=== PATIENT | female | born 1975 | race Caucasian/White ===

== ENCOUNTER 2017-08-21 08:39 | Day surgery (SDC) | payer OTHER ==
[2017-08-20 15:14] VITALS: BMI 25.4
[2017-08-21] MEDS ORDERED: PROPOFOL 20 ML ONE (09:01)
[2017-08-21] MEDS ORDERED: LIDOCAINE HCL 2% (20ML MULTI-DOSE VIAL) NR ONE (09:01)
[2017-08-21 10:05] VITALS: TEMP 98.6
[2017-08-21 10:22] VITALS: PULSE 75
[2017-08-21 11:10] VITALS: BP 120/77
--- NOTE | 2017-08-22 17:00 | PATH ---
Surgical Pathology Report Patient Name: JUAN RIOS [facility]. Rec. #: [id number] /Age/Gender: 1975 (Age: 42) / F Account: [id number] Location: U-ENDOSCOPY Taken: 08/21/2017 Received: 08/21/2017 Reported: 08/22/2017 Physicians: Shawn Back M.D. Specimen(s) Received BX ULCERATIVE PROCTITIS Clinical History Preoperative diagnosis: Follow up ulcerative colitis Postoperative diagnosis: Ulcerative colitis Final Diagnosis RECTUM, ULCERATIVE PROCTITIS, BIOPSY: COLONIC MUCOSA WITH SEVERE CHRONIC ACTIVE COLITIS WITH ASSOCIATED ULCERATION, CRYPTITIS, GLAND AND ARCHITECTURAL DISTORTION. NO GRANULOMA OR DYSPLASIA IDENTIFIED. Electronically Signed Jade Melo M.D. Gross Description Received in formalin, labeled "biopsy ulcerative proctitis" are 3 constantino, irregular portions of soft tissue ranging from 0.1-0.4 cm. in greatest dimension. The specimens are submitted in toto in one cassette. 08/21/201708/21/2017
== END 2017-08-21 11:12 | disposition home or self-care (01) ==
LOC: JASU-ENDO 08:39
PROVIDERS: ATTEND Internal Medicine Gastroenterology
PROC: 0DBP8ZX Excision of Rectum, Via Natural or Artificial Opening Endoscopic, Diagnostic (ICD-10-PCS; principal; 2017-08-21 09:00)
DX: K51.90 Ulcerative colitis, unspecified, without complications (principal)
CPT/HCPCS: 84703; 88305-TC

== ENCOUNTER 2018-11-23 18:27 | Emergency (ER) | payer OTHER ==
[2018-11-23 18:34] VITALS: BP 133/80; PULSE 91; TEMP 98.1; BMI 26.6
--- NOTE | 2018-11-23 19:51 | PDOC ---
History of Present Illness - General History Source: Patient Exam Limitations: No Limitations - History of Present Illness Initial Comments: 11/23/18 19:46 Best Contact: PCP: [place]'s giovanny Pmhx: IDDN, UC, Chronic back pain Pshx: 2016x2/2007/2005: MLD (HNP), 2010: abdominalplasty Allergies:NKDA FH:Parents (IDDM) Social Hx: Cigarettes/ 0 Alcohol/ social Drugs/0 LMP: 10/26/2018 43-year-old female presents to the emergency department complaining of left lower quadrant/left sided pelvic pain that started 3 days ago. Patient reports the pain is described as 7/10 dull intermittent soreness without radiculopathy without fever, chills, nausea/vomiting, headache, dizziness, lightheadedness, facial pains, neck stiffness/pain, back pain, chest pain, numbness of breath, flank pains, urinary symptoms: Frequency/urgency/hesitancy, hematuria, extremity numbness or tingling sensation. Patient states the soreness feels like an inflammation. <Sadaf Heath - Last Filed: 11/23/18 23:35> <Rosanne Donovan - Last Filed: 11/24/18 00:24> - General Chief Complaint: Back Pain Stated Complaint: LOWER BACK PAIN Time Seen by Provider: 11/23/18 19:27 Past History - Past Medical History COPD: No Diabetes: Yes (IDDM) GI Disorders: Yes (COLITIS) Hypercholesterolemia: Yes - Surgical History Abdominal Surgery: Yes (KATELYN MASON 2009) Orthopedic Surgery: Yes (LOWER BACK SURGERY) - Immunization History Immunization Up to Date: Yes - Suicide/Smoking/Psychosocial Hx Smoking Status: No Smoking History: Never smoked Have you smoked in the past 12 months: No Number of Cigarettes Smoked Daily: 0 Hx Alcohol Use: No Drug/Substance Use Hx: No Substance Use Type: None Hx Substance Use Treatment: No <Sadaf Heath - Last Filed: 11/23/18 23:35> <Rosanne Donovan - Last Filed: 11/24/18 00:24> - Past Medical History Allergies/Adverse Reactions: Allergies Allergy/AdvReac Type Severity Reaction Status Date / Time No Known Allergies Allergy Verified 11/23/18 18:30 Home Medications: Ambulatory Orders Gabapentin [Neurontin -] 300 mg PO BID 11/23/18 Insulin Glargine,Hum.rec.anlog [Lantus] 50 unit SQ HS 11/23/18 Sitagliptin Phos/Metformin HCl [Janumet 50-1,000 mg Tablet] 1 each PO BID Review of Systems - Review of Systems Able to Perform ROS?: Yes Comments:: 11/23/18 19:49 CONSTITUTIONAL: Absent: fever, chills, diaphoresis, generalized weakness, malaise, loss of appetite HEENT: Absent: rhinorrhea, nasal congestion, throat pain, throat swelling, difficulty swallowing, mouth swelling, ear pain, eye pain, visual Changes CARDIOVASCULAR: Absent: chest pain, loss of consciousness, palpitations, irregular heart rate, peripheral edema RESPIRATORY: Absent: cough, shortness of breath, dyspnea with exertion, orthopnea, wheezing, stridor, hemoptysis GASTROINTESTINAL: +LLQ/left pelvic pain Absent:abdominal distension, nausea, vomiting, diarrhea, constipation, melena, hematochezia GENITOURINARY: Absent: dysuria, frequency, urgency, hesitancy, hematuria, flank pain, genital pain MUSCULOSKELETAL: Absent: myalgia, arthralgia, joint swelling SKIN: Absent: rash, itching, pallor HEMATOLOGIC/IMMUNOLOGIC: Absent: easy bleeding, easy bruising, lymphadenopathy, frequent infections ENDOCRINE: Absent: unexplained weight gain, unexplained weight loss, heat intolerance, cold intolerance NEUROLOGIC: Absent: headache, focal weakness or paresthesias, dizziness, unsteady gait, seizure, mental status changes, bladder or bowel incontinence Is the patient limited Icelandic proficient: No <Sadaf Heath - Last Filed: 11/23/18 23:35> *Physical Exam - Vital Signs Last Vital Signs Temp Pulse Resp BP Pulse Ox 98.1 F 91 H 20 133/80 99 11/23/18 18:31 11/23/18 18:31 11/23/18 18:31 11/23/18 18:31 11/23/18 18:31 - Physical Exam Comments: 11/23/18 19:49 GENERAL: Well developed, well nourished. Awake and alert. No acute distress. HEENT: Normocephalic, atraumatic. PERRLA, EOMI. No conjunctival pallor. Sclera are non- icteric. Moist mucous membranes. Oropharynx is clear. NECK: Supple. Full ROM. No JVD. Carotid pulses 2+ and symmetric, without bruits. No thyromegaly. No lymphadenopathy. CARDIOVASCULAR: Regular rate and rhythm. No murmurs, rubs, or gallops. Distal pulses are 2+ and symmetric. PULMONARY: No evidence of respiratory distress. Lungs clear to auscultation bilaterally. No wheezing, rales or rhonchi. ABDOMINAL: +LLQ/Pelvic pain on deep palp Soft. Non-distended. No rebound or guarding. No organomegaly. Normoactive bowel sounds. MUSCULOSKELETAL Normal range of motion at all joints. No bony deformities or tenderness. No CVA tenderness. EXTREMITIES: No cyanosis. No clubbing. No edema. No calf tenderness. SKIN: Warm and dry. Normal capillary refill. No rashes. No jaundice. NEUROLOGICAL: Alert, awake, appropriate. Cranial nerves 2-12 intact. No deficits to light touch and temperature in face, upper extremities and lower extremities. No motor deficits in the in face, upper extremities and lower extremities. Normoreflexic in the upper and lower extremities. Normal speech. Toes are down- going bilaterally. Gait is normal without ataxia. <Sadaf Heath - Last Filed: 11/23/18 23:35> - Vital Signs Last Vital Signs Temp Pulse Resp BP Pulse Ox 98.1 F 91 H 20 133/80 99 11/23/18 18:31 11/23/18 18:31 11/23/18 18:31 11/23/18 18:31 11/23/18 18:31 <Rosanne Donovan - Last Filed: 11/24/18 00:24> Moderate Sedation - Procedure Monitoring Vital Signs: Procedure Monitoring Vital Signs Temperature 98.1 F 11/23/18 18:31 Pulse Rate 91 H 11/23/18 18:31 Respiratory Rate 20 11/23/18 18:31 Blood Pressure 133/80 11/23/18 18:31 O2 Sat by Pulse Oximetry (%) 99 11/23/18 18:31 <Sadaf Heath - Last Filed: 11/23/18 23:35> - Procedure Monitoring Vital Signs: Procedure Monitoring Vital Signs Temperature 98.1 F 11/23/18 18:31 Pulse Rate 91 H 11/23/18 18:31 Respiratory Rate 20 11/23/18 18:31 Blood Pressure 133/80 11/23/18 18:31 O2 Sat by Pulse Oximetry (%) 99 11/23/18 18:31 <Rosanne Donovan - Last Filed: 11/24/18 00:24> ED Treatment Course - LABORATORY CBC & Chemistry Diagram: 11/23/18 20:38 11/23/18 20:38 - RADIOLOGY Radiograph Interpretation: 11/23/18 19:55 CT abd/pelvis w/o contrast: No findings to suggest acute inflammatory bowel disease. No density present within the wall distal sigmoid colon and rectum suggesting prior bout of colitis. The patient continues to symptoms of acute colitis or with eating, direct visualization recommended. Moderate constipation. No evidence of tract obstruction or inflammatory change. Female pelvic organs unremarkable. <Sadaf Heath - Last Filed: 11/23/18 23:35> - LABORATORY CBC & Chemistry Diagram: 11/23/18 20:38 11/23/18 20:38 - ADDITIONAL ORDERS Additional order review: Laboratory Results 11/23/18 11/23/18 20:38 20:38 Sodium 136 Potassium 4.4 Chloride 102 Carbon Dioxide 29 Anion Gap 5 L BUN 11 Creatinine 0.8 Creat Clearance w eGFR 78.66 Random Glucose 247 H Calcium 8.8 Total Bilirubin 0.3 AST 10 L ALT 20 Alkaline Phosphatase 137 H Total Protein 7.6 Albumin 4.1 Beta HCG, Quant 1.2 Urine Color Yellow Urine Appearance Clear Urine pH 5.0 Ur Specific [place] 1.026 Urine Protein Negative Urine Glucose (UA) 3+ H Urine Ketones Trace H Urine Blood Negative Urine Nitrite Negative Urine Bilirubin Negative Urine Urobilinogen 2.0 H Ur Leukocyte Esterase Negative 11/23/18 20:38 RBC 4.68 MCV 80.7 MCHC 34.9 RDW 13.7 MPV 8.1 Neutrophils % 60.9 Lymphocytes % 28.6 Monocytes % 5.3 Eosinophils % 4.2 Basophils % 1.0 - Medications Given in the ED: ED Medications Discontinued Medications Generic Name Dose Route Start Last Admin Trade Name Freq PRN Reason Stop Dose Admin Sodium Chloride 1,000 mls @ 1,000 mls/hr 11/23/18 19:53 11/23/18 20:36 Normal Saline - IV 11/23/18 20:52 1,000 mls/hr ASDIR STA Administration Morphine Sulfate 4 mg 11/23/18 21:35 11/23/18 21:56 Morphine Injection - IVPUSH 11/23/18 21:36 4 mg ONCE ONE Administration Ondansetron HCl 4 mg 11/23/18 21:35 11/23/18 21:56 Zofran Injection IVPUSH 11/23/18 21:36 4 mg ONCE ONE Administration <Rosanne Donovan - Last Filed: 11/24/18 00:24> Medical Decision Making - Medical Decision Making 11/24/18 00:24 Patient Name: JUAN RIOS THIS IS A PRELIMINARY REPORT FROM [facility] DATE OF SERVICE: 2018-11-23 22:14:53 IMAGES: 425 EXAM: ABDOMEN \T\ PELVIS CT WITH CONTR History: 43-year-old female with left lower quadrant pain. History of ulcerative colitis. Comparison: None Procedure: CT scan abdomen and pelvis, dated November 23, 2018 . Axial images obtained followed by coronal and sagittal reconstructions. Intravenous contrast utilized, 95 cc Omnipaque 350. . Oral contrast also utilized. Findings: The liver, spleen, pancreas, adrenal glands and kidneys unremarkable. Gallbladder gallbladder fossa normal in appearance. No ureteral or bladder abnormalities noted. Rectum and perirectal space unremarkable. Moderate distention of the large bowel with fecal material. Low-density present within the bowel wall distal sigmoid colon and rectum suggesting a prior bout of colitis. No large bowel wall thickening appreciated. Terminal ileum is normal in appearance. Small appendiceal stump unremarkable. No large or small bowel inflammatory changes evident. Uterus anteverted in position. Ovaries unremarkable. The abdominal aorta/branch vessels/IVC normal configuration. No significant retroperitoneal adenopathy identified. Small less than 1 cm mesenteric lymph nodes present. Degenerative disc disease L5-S1 disc level. No erosive changes to the SI joints noted. Impression: 1.No findings to suggest acute inflammatory bowel disease. Low-density present within the wall distal sigmoid colon and rectum suggesting prior bout of colitis. If patient continues with symptoms of acute colitis or with rectal bleeding, direct visualization recommended. 2. Moderate constipation. 3. No evidence of tract obstruction or inflammatory change. 4. Female pelvic organs unremarkable. <Rosanne Donovan - Last Filed: 11/24/18 00:24> *DC/Admit/Observation/Transfer - Discharge Dispostion Decision to Admit order: No <Sadaf Heath - Last Filed: 11/23/18 23:35> <Rosanne Donovan - Last Filed: 11/24/18 00:24> Diagnosis at time of Disposition: Hyperglycemia Abdominal pain Qualifiers: Abdominal location: left lower quadrant Qualified Code(s): R10.32 - Left lower quadrant pain - Discharge Dispostion Disposition: HOME Condition at time of disposition: Stable - Referrals Referrals: Liliana Maciel [Primary Care Provider] - - Patient Instructions Printed Discharge Instructions: Eating a Diet Rich in Fruits and Vegetables Additional Instructions: You had a CAT scan with IV contrast and he drank contrast The following are the preliminary results: CT abd/pelvis w/o contrast: No findings to suggest acute inflammatory bowel disease. No density present within the wall distal sigmoid colon and rectum suggesting prior bout of colitis. The patient continues to symptoms of acute colitis or with eating, direct visualization recommended. Moderate constipation. No evidence of tract obstruction or inflammatory change. Female pelvic organs unremarkable. It is very important that you follow with the anatomical embalmer on and Sunday Increase fluids Plant base diet Return back to the ER for severe/persistent or worsening symptoms - Post Discharge Activity
[2018-11-23] MEDS ORDERED: SODIUM CHLORIDE 1,000 ML IV STA (19:53)
[2018-11-23 20:47] LABS: EOS % 4.2 % (0-4.5); HEMATOCRIT 37.8 % (32.4-45.2); HEMOGLOBIN 13.2 GM/dL (10.7-15.3); LYMPH % 28.6 % (8-40); MCH 28.2 pg (25.7-33.7); MCHC 34.9 g/dl (32.0-36.0); MEAN CELL VOLUME 80.7 fl (80-96); MEAN PLT VOLUME 8.1 fl (7.5-11.1); MONO % 5.3 % (3.8-10.2); NEUT % 60.9 % (42.8-82.8); PLATELET COUNT 341 K/MM3 (134-434); RBC 4.68 M/mm3 (3.60-5.2); RDW 13.7 % (11.6-15.6); URINE APPEARANCE CLEAR; URINE BILIRUBIN NEGATIVE (<2.0 mg/dL); URINE COLOR YELLOW; URINE GLUCOSE (UA) 3+ (NEGATIVE); URINE KETONE TRACE (NEGATIVE); URINE LEUK ESTERASE NEGATIVE (NEGATIVE); URINE NITRITE NEGATIVE (NEGATIVE); URINE PROTEIN NEGATIVE (NEGATIVE); WHITE BLOOD COUNT 12.8 K/mm3 (4.0-10.0)
[2018-11-23 21:19] LABS: ALBUMIN 4.1 g/dl (3.4-5.0); ALK PHOS 137 U/L (45-117); ANION GAP 5 MMOL/L (8-16); BILIRUBIN,TOTAL 0.3 mg/dL (0.2-1); BLOOD UREA NITROGEN 11 mg/dL (7-18); CALCIUM 8.8 mg/dL (8.5-10.1); CHLORIDE 102 mmol/L (98-107); CO2 29 mmol/L (21-32); CREATININE 0.8 mg/dL (0.55-1.3); GLUCOSE,RANDOM 247 mg/dL (74-106); POTASSIUM 4.4 mmol/L (3.5-5.1); SGOT/AST 10 U/L (15-37); SGPT/ALT 20 U/L (13-61); SODIUM 136 mmol/L (136-145); TOT PROT 7.6 g/dl (6.4-8.2)
[2018-11-23] MEDS ORDERED: morphine CARPU-JECT 4 MG/1 ML DISP.SYRIN IVPUSH ONE (21:35)
[2018-11-23] MEDS ORDERED: ONDANSETRON 4 MG/2 ML VIAL IVPUSH ONE (21:35)
[2018-11-23] MEDS ORDERED: morphine SULFATE 4 MG/ML VIAL ONE (21:53)
[2018-11-23] MEDS ORDERED: ONDANSETRON 4 MG/2 ML VIAL ONE (21:54)
== END 2018-11-23 23:43 | disposition home or self-care (01) ==
LOC: JER 18:27
PROC: 3E0337Z Introduction of Electrolytic and Water Balance Substance into Peripheral Vein, Percutaneous Approach (ICD-10-PCS; principal; 2018-11-23)
PROC: 3E0333Z Introduction of Anti-inflammatory into Peripheral Vein, Percutaneous Approach (ICD-10-PCS; 2018-11-23)
PROC: 3E033GC Introduction of Other Therapeutic Substance into Peripheral Vein, Percutaneous Approach (ICD-10-PCS; 2018-11-23)
DX: E10.9 Type 1 diabetes mellitus without complications (principal); Z79.4 Long term (current) use of insulin; R10.32 Left lower quadrant pain
CPT/HCPCS: 36415; 74177-TC; 80053; 81003; 84702; 85025; 96361; 96374; 96375; 99282-25; J7030; Q9967